=== PATIENT | male | born 1980 | race Caucasian/White ===

== ENCOUNTER 2019-09-04 18:21 | Emergency (ER) | payer BC, OTHER ==
[~2019-09-04] VITALS: Ht 172.7 cm; Wt 77.1 kg
[~2019-09-04 18:21] MED LIST: ASPIRIN EC325 MG PO; CELECOXIB200 MG PO; GABAPENTIN600 MG PO; MEN'S ONE DAIL1 EACH PO; OXYCODONE HCL5 MG PO; SENNA LAX8.6 MG PO
[2019-09-04] MEDS ORDERED: OXYCODONE HCL5 MG PO (19:05)
== END 2019-09-04 19:14 | disposition home or self-care (01) ==
LOC: ED 18:21
DX: Z76.0 Encounter for issue of repeat prescription (principal); Z96.641 Presence of right artificial hip joint; F17.200 Nicotine dependence, unspecified, uncomplicated; Z79.82 Long term (current) use of aspirin; Z79.899 Other long term (current) drug therapy
CPT/HCPCS: 99281

== ENCOUNTER 2020-09-01 15:07 | Emergency (ER) | payer OTHER ==
[~2020-09-01] VITALS: Ht 172.7 cm; Wt 85.8 kg
[~2020-09-01 15:07] MED LIST changes: +VALIUM5 MG PO
--- OUTSIDE RECORDS SUMMARY | 2020-09-01 15:10 | XMS ---
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 EPaula VISIT COUNT (12 MO.) 3 JAYESH Vu TOTAL 3 NOTE: Visits indicate total known visits. ED/UCC VISIT TRACKING (12 MO.) 09/01/2020 15:07 JAYESH Pavon [place] TYPE: Emergency COMPLAINT: - R HIP PAIN 09/26/2019 18:56 JAYESH Pavon [place] TYPE: Emergency COMPLAINT: - HAND PAIN DIAGNOSES: - Cervical root disorders, not elsewhere classified - Cervicalgia 09/04/2019 18:22 JAYESH Pavon [place] TYPE: Emergency COMPLAINT: - MEDICATION REFILL DIAGNOSES: - Nicotine dependence, unspecified, uncomplicated - correction (current) use of aspirin - Other halfway (current) drug therapy - Presence of right artificial hip joint - Encounter for issue of repeat prescription INPATIENT VISIT TRACKING (12 MO.) No inpatient visits to display in this time frame [email or web address]
== END 2020-09-01 17:03 | disposition home or self-care (01) ==
LOC: ED 15:07
DX: S73.101A Unspecified sprain of right hip, initial encounter (principal); X58.XXXA Exposure to other specified factors, initial encounter; F17.200 Nicotine dependence, unspecified, uncomplicated; Z79.82 Long term (current) use of aspirin
CPT/HCPCS: 73502; 99283-25

== ENCOUNTER 2020-10-17 09:40 | Emergency (ER) | payer OTHER ==
[~2020-10-17] VITALS: Ht 172.7 cm; Wt 86.2 kg
--- OUTSIDE RECORDS SUMMARY | 2020-10-17 09:42 | XMS ---
PreManage Notification: PARMINDER MERCADO Security Search Planner Events No recent Security Events currently on file CRITERIA MET - Group Notification - [facility] - Has Care Guidelines CARE PROVIDERS There are no care providers on record at this time. Siobhan has no Care Guidelines for this patient. Care History Medical/Surgical 09/05/2020 [facility] Patient was seen in ED due to injury that happened while working on his vehicle causing him to do the splits. 09/02/2020 [facility] - Patient is currently established with [facility]. If patient is seen in the ED during business hours. Please contact CHWs at [facility]. Care Recommendation: If this patient has had 5 or more Emergency Department visits in the last 12 months.\T\nbsp; Patient will require education on the scope and purpose of the ED as an acute care provider not a Primary Care Provider and should not be utilized for chronic conditions.\T\nbsp; These are guidelines and the provider should exercise clinical judgment when providing care. E.D. VISIT COUNT (12 MO.) 2 [facility]. TOTAL 2 NOTE: Visits indicate total known visits. 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
[2020-10-17] MEDS ORDERED: NASAL DECONGEST30 MG PO (10:30)
[2020-10-17] MEDS ORDERED: FLONASE ALLERG9.9 ML NAS (10:30)
== END 2020-10-17 10:39 | disposition home or self-care (01) ==
LOC: ED 09:40
DX: J30.9 Allergic rhinitis, unspecified (principal); J32.9 Chronic sinusitis, unspecified; I10 Essential (primary) hypertension
CPT/HCPCS: 99283

== ENCOUNTER 2021-04-03 03:30 | Emergency (ER) | payer OTHER ==
[~2021-04-03] VITALS: Ht 172.7 cm; Wt 37.8 kg
[~2021-04-03 03:30] MED LIST changes: +FLONASE ALLERG9.9 ML NAS; +NASAL DECONGEST30 MG PO
--- OUTSIDE RECORDS SUMMARY | 2021-04-03 03:34 | XMS ---
PreManage Notification: PARMINDER MERCADO Security Belt Notcher Events No recent Security Events currently on file CRITERIA MET - [facility] - Has Care Guidelines - Group Notification CARE PROVIDERS ALESSANDRA VANCE Emergency Medicine 10/18/2020-Current PHONE: [phone] Siobhan has no Care Guidelines for this patient. Care History Medical/Surgical 09/05/2020 [facility] Patient was seen in ED due to injury that happened while working on his vehicle causing him to do the splits. 09/02/2020 [facility] - [facility] providing care. E.D. VISIT COUNT (12 MO.) 3 [facility] TOTAL 3 NOTE: Visits indicate total known visits. ED/UCC VISIT TRACKING (12 MO.) 04/03/2021 03:31 JAYESH Pavon [place] TYPE: Emergency COMPLAINT: - DIZZINESS, BLURRY VISION, HEADACHE 10/17/2020 09:40 JAYESH Pavon [place] TYPE: Emergency COMPLAINT: - RUNNING NOSE,SNEEZING,SINUS ISSUES DIAGNOSES: - Chronic sinusitis, unspecified - Allergic rhinitis, unspecified - Essential (primary) hypertension 09/01/2020 15:07 JAYESH Pavon [place] TYPE: Emergency COMPLAINT: - R HIP PAIN DIAGNOSES: - Exposure to other specified factors, initial encounter - retirement (current) use of aspirin - Unspecified sprain of right hip, initial encounter - Pain in right hip - Nicotine dependence, unspecified, uncomplicated INPATIENT VISIT TRACKING (12 MO.) No inpatient visits to display in this time frame [email or web address]
[2021-04-03] MEDS ORDERED: LISINOPRIL-HCT1 EACH PO (03:45)
== END 2021-04-03 04:48 | disposition home or self-care (01) ==
LOC: ED 03:30
DX: U07.1 COVID-19 (principal); I10 Essential (primary) hypertension; Z79.899 Other long term (current) drug therapy
CPT/HCPCS: 99284; C9803; U0003

== ENCOUNTER 2021-08-03 07:45 | Day surgery (SDC) | payer OTHER ==
[~2021-08-03] VITALS: Ht 172.7 cm; Wt 85.9 kg
[~2021-08-03 07:45] MED LIST changes: +LISINOPRIL-HCT1 EACH PO
--- NOTE | 2021-08-03 10:00 | NUR ---
08/03/21 [address] 0921 PATIENT SLEEPING, SNORING AT TIMES. RESP EVEN AND UNLABORED, NC AT 2 LITERS, TURNED OFF ON ARRIVAL TO PACU. PATIENT DESATS TO 88% WHEN SLEEPING, BUT POPS BACK UP TO 92% WITHOUT STIMULATION. NC TURNED BACK ON AT 2 LITERS.
--- NOTE | 2021-08-03 17:24 | OR ---
[facility] [address] [place], [place] [address] Signed DATE OF OPERATION: 08/03/2021 SURGEON: Karolyn Siegel MD PREOPERATIVE DIAGNOSES: 1. Alternating constipation and diarrhea. 2. Intermittent rectal bleeding for four years. 3. Maternal cousin with Crohn disease. POSTOPERATIVE DIAGNOSES: 1. A 12 mm sessile polyp, proximal right colon (tattoo). 2. Moderate internal hemorrhoids. PROCEDURE: Colonoscopy with hot biopsy and injection of tattoo along with cold biopsies of the right transverse and left colon. ESTIMATED BLOOD LOSS: None. INDICATIONS: Zohaib is a 40-year-old gentleman asked to see me for two issues. First, he has a fairly significant pedunculated skin lesion on his right occipital scalp that we are going to remove in the office. In addition, he has been having right lower quadrant abdominal pain associated with diarrhea last summer. His abdominal ultrasound was unremarkable. He was H pylori positive. He took the antibiotics but did not take the omeprazole. Overall, he said he does feel better. He continues with alternating constipation and diarrhea. Occasionally he sees blood in the diarrhea. He thinks he has hemorrhoids. He said it has been at least four years. 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 He has been under a significant amount of stress, having moved from [place] up to [place]. He is supporting five children. Two are his for sure, the other three he is not certain. There has been a change in leadership at his work and that was stressful. They finally started paying the diesel mechanics more in line with our region. That has also helped. He knows he has a maternal cousin with Crohn disease. He likes to chew Zyn pouches every day. He smokes two or three cigarettes in a day. He also likes to drink alcohol on the weekends. He has no family history of colon cancer or polyps to his knowledge. There is obviously some concern about irritable bowel syndrome. In the office, I gave him a pamphlet on colonoscopy. I also gave him a pamphlet on irritable bowel syndrome. He understands the nature of a colonoscopy. There is risk including, but not limited to gas bloating, crampy abdominal pain, bleeding, perforation requiring Electronically Signed By: KAROLYN SIEGEL MD 08/03/21 1724 PATIENT NAME: ZOHAIB MERCADO OPERATIVE REPORT DATE OF : 76 REPORT #: [id number] PHYSICIAN: KAROLYN SIEGEL MD PCP: ALESSANDRA VANCE NP REPORT IS CONFIDENTIAL AND NOT TO BE RELEASED WITHOUT AUTHORIZATION [facility] [address] [place], [place] [address] Signed surgery, and missed diagnosis. He also understands the need for the IV conscious sedation. He had expressed understanding and wished to proceed. PROCEDURE NOTE: Zohaib was taken into our endoscopy suite and placed in the left lateral decubitus position. He was given a total of 5 mg of Versed and 150 mcg of fentanyl to cover the case. A digital rectal exam was performed and he has very little in the way of external hemorrhoids. He has good sphincter tone. Excellent perianal hygiene. No evidence of any fistula tracts. His prostate is starting to get a little indurated. The adult colonoscope had been introduced and advanced all the way around into the proximal right colon. It took a little extra sedation to get over to the right colon. His prep was quite excellent. In the proximal right colon, he has a 12 maybe even 15 mm sessile multilobulated polyp on a fold. We were able to get most of the polyp on the anterior portion of the fold, but on the posterior portion of the fold we just could not reach that. We were able to use the hot biopsy forceps to push it down and flatten it out and cauterize it along the full length of that polyp. In the end, we think we destroyed the entire polyp. We went ahead and placed a tattoo underneath the base of that polyp. The cecum itself was unremarkable. The ileocecal valve was unremarkable. We did not turn our scope up into the terminal ileum on this occasion. The scope was then slowly withdrawn. We saw no inflammatory changes throughout his entire colon or rectum. We took random biopsies in the right colon, transverse colon, and left colon. Once in the rectum, the scope had been retroflexed. He does have moderate internal hemorrhoid columns and two of them were a little irritated. I am sure they bleed from time to time. After this, the gas was suctioned out and the colonoscope removed. Zohaib tolerated the procedure quite well. RECOMMENDATIONS: I will see Zohaib back in my office in 7 to 14 days to review his results. We will have to keep a close eye on this polyp in his proximal right colon. MD OTF Dueñas/JOSIE /[id number] cc: SONYA Kramer Electronically Signed By: KAROLYN SIEGEL MD 08/03/21 1724 PATIENT NAME: ZOHAIB MERCADO OPERATIVE REPORT DATE OF : 76 REPORT #: [id number] PHYSICIAN: KAROLYN SIEGEL MD PCP: ALESSANDRA VANCE NP REPORT IS CONFIDENTIAL AND NOT TO BE RELEASED WITHOUT AUTHORIZATION [address] [address] Signed Karolyn Siegel MD Copies: KAROLYN SIEGEL MD ~ Electronically Signed By: KAROLYN SIEGEL MD 08/03/21 1724 PATIENT NAME: ZOHAIB MERCADO OPERATIVE REPORT DATE OF : 76 REPORT #: [id number] PHYSICIAN: KAROLYN SIEGEL MD PCP: ALESSANDRA VANCE NP REPORT IS CONFIDENTIAL AND NOT TO BE RELEASED WITHOUT AUTHORIZATION
--- NOTE | 2021-08-04 13:26 | PATH ---
[facility] [address] [place], [place] [address] Signed SPECIMEN(S): A ASCENDING/RIGHT COLON POLYP SPECIMEN(S): B ASCENDING/RIGHT COLON BIOPSY SPECIMEN(S): C TRANSVERSE COLON BIOPSY SPECIMEN(S): D DESCENDING/LEFT COLON BIOPSY SPECIMEN SOURCE: A. ASCENDING/RIGHT COLON POLYP B. ASCENDING/RIGHT COLON BIOPSY C. TRANSVERSE COLON BIOPSY D. DESCENDING/LEFT COLON BIOPSY CLINICAL HISTORY: Colonoscopy. Diarrhea and constipation. Sister, history of Crohn's. FINAL PATHOLOGIC DIAGNOSIS: A. Colon, ascending/right, polyp, polypectomy: - Fragments of tubular adenoma. - Negative for high-grade dysplasia or malignancy. B. Colon, ascending/right, biopsy: - Colonic mucosa with no histopathologic abnormality. - Negative for active, chronic, or microscopic colitis. - Negative for dysplasia or malignancy. C. Colon, transverse, biopsy: - Fragments of colonic mucosa with no histopathologic abnormality. - Negative for active, chronic, or microscopic colitis. - Negative for dysplasia or malignancy. D. Colon, descending/left, biopsy: - Colonic mucosa with no histopathologic abnormality. - Negative for active, chronic, or microscopic colitis. - Negative for dysplasia or malignancy. NAL:cml:C2NR MICROSCOPIC EXAMINATION: Histologic sections of all submitted blocks are examined by light microscopy. These findings, together with the gross examination, support the pathologic diagnosis. GROSS DESCRIPTION: Four specimens are received in four containers, labeled "EO." A. The specimen, labeled "EO, #1 right colon polyp," is received in formalin and consists of three lawrence soft tissue fragments that measure 0.2-0.3 cm in PATIENT NAME: PARMINDER MERCADO PATHOLOGY DATE OF : 76 REPORT #: [id number] PHYSICIAN: GARY ALVAREZ PCP: ALESSANDRA VANCE NP REPORT IS CONFIDENTIAL AND NOT TO BE RELEASED WITHOUT AUTHORIZATION [facility] [address] [place], [place] [address] Signed greatest dimension. The specimen is entirely submitted in cassette (A1). B. The specimen, labeled "EO, #2 right colon biopsy," is received in formalin and consists of one lawrence soft tissue fragment that measures 0.3 cm in greatest dimension. The specimen is entirely submitted in cassette (B1). C. The specimen, labeled "EO, #3 transverse colon," is received in formalin and consists of two lawrence soft tissue fragments that measure 0.2 cm in greatest dimension. The specimen is entirely submitted in cassette (C1). D. The specimen, labeled "EO, #4 left colon," is received in formalin and consists of one lawrence soft tissue fragment that measures 0.3 cm in greatest dimension. The specimen is entirely submitted in cassette (D1). AT (under the direct supervision of a pathologist) The Gross Description was prepared using a voice recognition system. The report was reviewed for accuracy; however, sound-alike word errors, addition and/or deletions may occur. If there is any question about this report, please contact Client Services. PERFORMING LABORATORY: The technical component was performed by [email or web address] [address] (Product Handler: Taina May MD; CLIA# [id number]). [facility] [address] [place] [address] (CLIA# [id number]). Diagnostician: Estrellita Arreaga MD Pathologist Electronically Signed 08/04/2021 Copies: ~ PATIENT NAME: PARMINDER MERCADO PATHOLOGY DATE OF : [birth year] REPORT #: [id number] PHYSICIAN: GARY ALVAREZ PCP: ALESSANDRA VANCE NP REPORT IS CONFIDENTIAL AND NOT TO BE RELEASED WITHOUT AUTHORIZATION
== END 2021-08-03 10:50 | disposition home or self-care (01) ==
LOC: DS 07:45 → OPS 07:45 → DS 09:15 → OPS 09:15
PROVIDERS: ATTEND Colon & Rectal Surgery
PROC: 3E0H8KZ Introduction of Other Diagnostic Substance into Lower GI, Via Natural or Artificial Opening Endoscopic (ICD-10-PCS; 2021-08-03)
PROC: 0DBG8ZX Excision of Left Large Intestine, Via Natural or Artificial Opening Endoscopic, Diagnostic (ICD-10-PCS; 2021-08-03)
PROC: 0DBL8ZX Excision of Transverse Colon, Via Natural or Artificial Opening Endoscopic, Diagnostic (ICD-10-PCS; 2021-08-03)
PROC: 0DBF8ZX Excision of Right Large Intestine, Via Natural or Artificial Opening Endoscopic, Diagnostic (ICD-10-PCS; 2021-08-03)
PROC: 0DBK8ZX Excision of Ascending Colon, Via Natural or Artificial Opening Endoscopic, Diagnostic (ICD-10-PCS; principal; 2021-08-03 09:15)
DX: D12.2 Benign neoplasm of ascending colon (principal); K64.8 Other hemorrhoids; D48.5 Neoplasm of uncertain behavior of skin; F17.210 Nicotine dependence, cigarettes, uncomplicated; Z83.79 Family history of other diseases of the digestive system
CPT/HCPCS: 99153; G0500; J0690; J2250; J3010; J7121

== ENCOUNTER 2022-03-17 13:35 | Emergency (ER) | payer OTHER ==
[~2022-03-17] VITALS: Ht 172.7 cm; Wt 85.7 kg
--- OUTSIDE RECORDS SUMMARY | 2022-03-17 13:38 | XMS ---
PreManage Notification: PARMINDER MERCADO Security Senior International Tax Manager Events No recent Security Events currently on file CRITERIA MET - Group Notification CARE PROVIDERS ALESSANDRA VANCE Emergency Medicine 10/18/2020-Current PHONE: [phone] Siobhan has no Care Guidelines for this patient. Care History Medical/Surgical 09/05/2020 [facility] Patient was seen in ED due to injury that happened while working on his vehicle causing him to do the splits. 09/02/2020 [facility] - Patient is currently established with [facility]. If patient is seen in the ED during business hours. Please contact CHWs at [facility]. Care Recommendation: If this patient has had [...] care. E.D. VISIT COUNT (12 MO.) 2 JAYESH Zaragoza ErrolMiguel Angel TOTAL 2 NOTE: Visits indicate total known visits. ED/UCC VISIT TRACKING (12 MO.) 03/17/2022 13:36 JAYESH Pavon [place] TYPE: Emergency COMPLAINT: - FLU SYMPTOMS 04/03/2021 03:31 JAYESH Pavon [place] TYPE: Emergency COMPLAINT: - DIZZINESS, BLURRY VISION, HEADACHE DIAGNOSES: - COVID-19 - Essential (primary) hypertension - Other residential (current) drug therapy - Headache, unspecified INPATIENT VISIT TRACKING (12 MO.) No inpatient visits to display in this time frame [email or web address]
[2022-03-17] MEDS ORDERED: ZITHROMAX250 MG PO (18:38)
[2022-03-17] MEDS ORDERED: VENTOLIN HFA18 GM INH (18:38)
[2022-03-17] MEDS ORDERED: PREDNISONE20 MG PO (18:38)
== END 2022-03-17 18:54 | disposition home or self-care (01) ==
LOC: ED 13:35
DX: J40 Bronchitis, not specified as acute or chronic (principal); Z20.822 Contact with and (suspected) exposure to COVID-19; I10 Essential (primary) hypertension
CPT/HCPCS: 36415; 71045; 80053; 83605; 85025; 87502; 94640; 96374; 96375; 99284-25; J1100; J1885; J7030; U0003

== ENCOUNTER 2022-10-19 08:32 | Emergency (ER) | payer OTHER ==
[~2022-10-19] VITALS: Ht 172.7 cm; Wt 85.2 kg
[~2022-10-19 08:32] MED LIST changes: +PREDNISONE20 MG PO; +VENTOLIN HFA18 GM INH; +ZITHROMAX250 MG PO
--- OUTSIDE RECORDS SUMMARY | 2022-10-19 08:41 | XMS ---
PreManage Notification: PARMINDER MERCADO Security Hooker Operator Events No recent Security Events currently on file CRITERIA MET - Group Notification CARE PROVIDERS ALESSANDRA VANCE Emergency Medicine 10/18/2020-Current PHONE: [phone] Siobhan has no Care Guidelines for this patient. Care History Medical/Surgical 09/05/2020 [facility] Patient was seen in ED due to injury that happened while working on his vehicle causing him to do the splits. 09/02/2020 [facility] - Patient is currently established with [...] care. [facility]. [facility] (12 MO.) [facility] T[facility] 2 NOTE: Visits indicate total known visits. ED/UCC VISIT TRACKING (12 MO.) 10/19/2022 08:33 JAYESH CampbellBlair HMiguel Angel [facility] [place] TYPE: Emergency COMPLAINT: - SINUS PRESSURE, DIZZY, CONGESTION 03/17/2022 13:36 JAYESH Zaragoza ErrolMiguel Angel [facility] [place] TYPE: Emergency COMPLAINT: - FLU SYMPTOMS DIAGNOSES: - Bronchitis, not specified as acute or chronic - Essential (primary) hypertension - Fever, unspecified - Contact with and (suspected) exposure to COVID-19 INPATIENT VISIT TRACKING (12 MO.) No inpatient visits to display in this time frame [email or web address]
[2022-10-19] MEDS ORDERED: LISINOPRIL-HCT1 EACH PO (09:03)
[2022-10-19 10:26] VITALS: BP 125/86
== END 2022-10-19 10:27 | disposition home or self-care (01) ==
LOC: ED 08:32
DX: J06.9 Acute upper respiratory infection, unspecified (principal); I10 Essential (primary) hypertension
CPT/HCPCS: 87502; 99283; C9803; U0003

== ENCOUNTER 2025-01-27 11:48 | Emergency (ER) | payer OTHER ==
[~2025-01-27] VITALS: Ht 172.7 cm; Wt 79.0 kg
[2025-01-27 15:02] LABS: BASOPHILS 0.5 % (0.2-1.2); EOSINOPHILS 2.0 % (0.8-7.0); LYMPHOCYTES 27.4 % (21.8-53.1); MCH 28.1 PG (25.7-32.2); MCHC 33.9 g/dL (32.3-36.5); MCV 82.8 fL (79.0-92.2); MONOCYTES 6.1 % (5.3-12.2); NEUTROPHILS 63.8 % (34.0-67.9); RBC 5.48 M/uL (4.63-6.08)
[2025-01-27 15:16] LABS: ALT (SGPT) 21.0 U/L (14-59); AST (SGOT) 14.0 U/L (15-37); GLOMERULAR FILTRATION RATE,EST 76.0 mL/min (>60); PROTEIN, TOTAL 7.2 g/dL (6.4-8.2); UREA NITROGEN 9.0 mg/dL (7-18)
[2025-01-27 15:17] LABS: BLOOD/HGB, URINE NEGATIVE (Negative); KETONE, URINE NEGATIVE (Negative); LEUK ESTERASE, URINE NEGATIVE (negative); NITRITE, URINE NEGATIVE (negative)
[2025-01-27 16:03] VITALS: BP 116/81
== END 2025-01-27 16:03 | disposition home or self-care (01) ==
LOC: ED 11:48
PROVIDERS: Emergency Medicine
DX: R63.0 Anorexia (principal); I10 Essential (primary) hypertension
CPT/HCPCS: 36415; 80053; 81003; 85025; 99284

== ENCOUNTER 2025-06-02 10:20 | Day surgery (SDC) | payer OTHER ==
[~2025-06-02] VITALS: Ht 172.7 cm; Wt 86.0 kg
[~2025-06-02 10:20] MED LIST changes: +IBLOOD GLUCOSE TEST STRIP 1 EA TEST VI PRN; +LACTATED RINGER'S 1,000 ML IV SCH; +LIDOCAINE HCL 1% 5 ML SDV INJ ONE
[2025-06-02 11:15] VITALS: BP 127/85
[2025-06-02] MEDS ORDERED: LIDOCAINE HCL 2% 5 ML SDV ONE (13:35)
--- NOTE | 2025-06-02 14:36 | NUR ---
06/02/25 1436 Jaqueline Quintana 1424-PATIENT ARRIVED TO PACU ON 4L NC RR EVEN NONAROUSABLE ORAL AIRWAY IN PLACE. ABDOMEN SOFT. IVF INFUSING. SR HR 90'S.
[2025-06-02 15:27] VITALS: BP 108/89
--- NOTE | 2025-06-09 07:22 | PATH ---
[facility] [address] [place], [place] [address] Signed SPECIMEN(S): A PYLORUS BIOPSY SPECIMEN(S): B ANTRUM BIOPSY SPECIMEN(S): C BODY BIOPSY SPECIMEN(S): D COLON POLYP, 50 CM SPECIMEN SOURCE: A. PYLORUS BIOPSY B. ANTRUM BIOPSY C. BODY BIOPSY D. COLON POLYP, 50 CM CLINICAL HISTORY: Pre: Dysphagia. Weight loss. Abdominal pain. Blood in stool. Post: Antral gastritis, colon polyp. Rule out colon MATEO test for specimen #2 biopsy antrum. FINAL PATHOLOGIC DIAGNOSIS: A. pylorus biopsy: - Chronic gastritis. - Negative for H. pylori like organisms by IHC stain. - Negative for intestinal metaplasia, dysplasia, or malignancy. B. antrum biopsy: - Chronic gastritis. - Negative for H. pylori like organisms by IHC stain. - Negative for intestinal metaplasia, dysplasia, or malignancy. C. stomach body biopsy: - Mild chronic gastritis. - Negative for H. pylori like organisms by HE stain. - Negative for intestinal metaplasia, dysplasia, or malignancy. D. Colon, polypectomy, 50 cm: - Benign colonic mucosa, negative for dysplasia or malignancy. IRG MICROSCOPIC EXAMINATION: Histologic sections of all submitted blocks (or IHC as applicable) are digitally scanned and examined. These findings, together with the gross examination, support the pathologic diagnosis. GROSS DESCRIPTION: A. The specimen, labeled and designated "Juve Mercado, " and designated on the requisition "pylorus biopsy," is received in formalin and consists of one lawrence soft tissue fragment that is 0.3 cm in PATIENT NAME: PARMINDER MERCADO PATHOLOGY DATE OF : 76 REPORT #: [id number] PHYSICIAN: GARY ALVAREZ PCP: YULIA HANKS NP REPORT IS CONFIDENTIAL AND NOT TO BE RELEASED WITHOUT AUTHORIZATION [facility] [address] [place], [place] [address] Signed greatest dimension. The specimen is entirely submitted in (A1). B. The specimen, labeled and designated "Ochampboy, E, " and designated on the requisition "antrum biopsy," is received in formalin and consists of one lawrence soft tissue fragment that is 0.4 cm in greatest dimension. The specimen is entirely submitted in (B1). C. The specimen, labeled and designated "Ochampaumicky, E, " and designated on the requisition "stomach body biopsy," is received in formalin and consists of one lawrence soft tissue fragment that is 0.4 cm in greatest dimension. The specimen is entirely submitted in (C1). D. The specimen, labeled and designated "Ronny, Juve, colon, polypectomy, 50 cm," is received in formalin and consists of one lawrence soft tissue fragment that is 0.4 cm in greatest dimension. The specimen is entirely submitted in (D1). FB (under the direct supervision of a pathologist) The Gross Description was prepared using a voice recognition system. The report was reviewed for accuracy; however, sound-alike word errors, addition and/or deletions may occur. If there is any question about this report, please contact Client Services. ADDITIONAL NOTES: Immunohistochemical and/or in situ hybridization studies if performed in this case included appropriate positive controls that reacted as expected. This test was developed and its performance characteristics determined by [facility]. It has not been cleared or approved by the U.S. Food and Drug Administration. The FDA has determined that such clearance or approval is not necessary. This test is used for clinical purposes. It should not be regarded as investigational or for research. [facility] is certified under the Clinical Laboratory Improvement Amendments of 1988 (CLIA) as qualified to perform high complexity clinical laboratory testing. PERFORMING LABORATORY: Technical component was performed by [facility], [address] [place] [address] (CLIA# [id number]). Professional interpretation was performed by [facility] - [facility], [address] [place] [address] (CLIA#: [id number]). Diagnostician: Francisco Solorio MD Pathologist Electronically Signed 06/09/2025 PATIENT NAME: PARMINDER MERCADO PATHOLOGY DATE OF : 76 REPORT #: [id number] PHYSICIAN: GARY PATHOLOGY PCP: YULIA HANKS NP REPORT IS CONFIDENTIAL AND NOT TO BE RELEASED WITHOUT AUTHORIZATION [facility] [address] [facility] [place] [address] Signed Copies: ~ PATIENT NAME: PARMINDER MERCADO PATHOLOGY DATE OF : 76 REPORT #: [id number] PHYSICIAN: GARY PATHOLOGY PCP: YULIA HANKS NP REPORT IS CONFIDENTIAL AND NOT TO BE RELEASED WITHOUT AUTHORIZATION
== END 2025-06-02 15:35 | disposition home or self-care (01) ==
LOC: DS 10:20
PROVIDERS: ATTEND Surgery
PROC: 0DBN8ZX Excision of Sigmoid Colon, Via Natural or Artificial Opening Endoscopic, Diagnostic (ICD-10-PCS; principal; 2025-06-02 11:30)
PROC: 0DB68ZX Excision of Stomach, Via Natural or Artificial Opening Endoscopic, Diagnostic (ICD-10-PCS; 2025-06-02 11:30)
DX: K63.5 Polyp of colon (principal); K29.50 Unspecified chronic gastritis without bleeding; K62.5 Hemorrhage of anus and rectum; K64.8 Other hemorrhoids; R13.10 Dysphagia, unspecified; K29.70 Gastritis, unspecified, without bleeding; Z86.0101 Personal history of adenomatous and serrated colon polyps
CPT/HCPCS: 00813; 88305; 88342; J2003; J2704; J7121